=== PATIENT | male | born 1965 | race Caucasian/White ===

== ENCOUNTER → 2016-06-23 | Outpatient (CLI) | payer BC ==
[~2016-06-23] MED LIST: HYDROCHLOROTHIA1 T15 PO; LISINOPRIL20 MG PO; METOPROLOL SUCC25 M1 PO; SIMVASTATIN40 M1 PO
== END ==
LOC: LAB 07:44
DX: E78.5 Hyperlipidemia, unspecified (principal); I10 Essential (primary) hypertension

== ENCOUNTER → 2016-09-15 | Outpatient (CLI) | payer BC | LOC: LAB 16:00 | DX: I10 Essential (primary) hypertension (principal) ==

== ENCOUNTER → 2016-11-07 | Outpatient (CLI) | payer BC ==
[~2016-11-07] VITALS: Ht 198.1 cm; Wt 147.3 kg
[2016-11-07 17:36] VITALS: BP 158/101
== END ==
LOC: AMSURD 17:13
DX: I10 Essential (primary) hypertension (principal)

== ENCOUNTER → 2017-01-01 | Outpatient (CLI) | payer BC ==
[2016-11-07 17:36] VITALS: BP 158/101
== END ==
LOC: RAD 13:00 → VAS 17:15
DX: I10 Essential (primary) hypertension (principal); G47.34 Idiopathic sleep related nonobstructive alveolar hypoventilation

== ENCOUNTER → 2017-05-28 | Outpatient (CLI) | payer BC ==
[2016-11-07 17:36] VITALS: BP 158/101
== END ==
LOC: CARDLAB 15:30 → CARDREHAB 16:03
DX: G47.33 Obstructive sleep apnea (adult) (pediatric) (principal); R06.83 Snoring; G47.36 Sleep related hypoventilation in conditions classified elsewhere; E66.9 Obesity, unspecified; Z68.37 Body mass index [BMI] 37.0-37.9, adult
CPT/HCPCS: G0399

== ENCOUNTER → 2017-09-12 | Outpatient (CLI) | payer OTHER ==
[2016-11-07 17:36] VITALS: BP 158/101
[2017-09-13 14:01] LABS: CORTISOL RANDOM 8 ug/dL (3-20)
[2017-09-13 14:20] LABS: MICROALBUMIN RANDOM 4.9 mg/dL (0.0-1.7)
== END ==
LOC: LAB 09:59
PROVIDERS: Psychiatry & Neurology Psychiatry
DX: I10 Essential (primary) hypertension (principal)

== ENCOUNTER → 2017-09-14 | Outpatient (CLI) | payer OTHER ==
[2016-11-07 17:36] VITALS: BP 158/101
[2017-09-14 08:38] LABS: URINE TOTAL VOLUME 2850 mL
== END ==
LOC: LAB 07:49
PROVIDERS: Internal Medicine Interventional Cardiology
DX: I10 Essential (primary) hypertension (principal)